=== PATIENT | male | born 1995 | race Asian ===

== ENCOUNTER 2021-06-28 13:03 | Emergency (ER) | payer OTHER ==
[~2021-06-28] VITALS: Ht 177.8 cm; Wt 84.7 kg
[2021-06-28] MEDS ORDERED: ONDA4TAB6 PO (15:54)
[2021-06-28] MEDS: ONDANSETRON 4 MG ORAL DISINTEGRATING TAB PO ONE (15:59)
[2021-06-28 16:06] VITALS: BP 132/68
== END 2021-06-28 16:12 | disposition home or self-care (01) ==
LOC: M ED 13:03
DX: S06.0X1A Concussion with loss of consciousness of 30 minutes or less, initial encounter (principal); W00.9XXA Unspecified fall due to ice and snow, initial encounter; Y92.89 Other specified places as the place of occurrence of the external cause; Y93.89 Activity, other specified; Y99.8 Other external cause status; M51.9 Unspecified thoracic, thoracolumbar and lumbosacral intervertebral disc disorder
CPT/HCPCS: 70450; 99283; Q0162

== ENCOUNTER 2022-09-16 10:58 | Emergency (ER) | payer OTHER ==
[~2022-09-16] VITALS: Ht 180.3 cm; Wt 86.4 kg
[~2022-09-16 10:58] MED LIST: ONDA4TAB6 PO
[2022-09-16] MEDS ORDERED: ONDA4TAB6 PO (15:54)
[2022-09-16 15:55] VITALS: BP 142/84
== END 2022-09-16 16:00 | disposition home or self-care (01) ==
LOC: M ED 10:58
DX: S06.0X0A Concussion without loss of consciousness, initial encounter (principal); Y04.0XXA Assault by unarmed brawl or fight, initial encounter; Z79.83 Long term (current) use of bisphosphonates

== ENCOUNTER 2023-06-23 12:48 | Emergency (ER) | payer OTHER ==
[~2023-06-23] VITALS: Ht 180.3 cm; Wt 83.4 kg
[2023-06-23] MEDS ORDERED: RIZA10TA58 (13:14)
[2023-06-23] MEDS ORDERED: AMIT25TA19 (13:14)
[2023-06-23 14:10] LABS: RSV AMPLIFICATION NEGATIVE (NEGATIVE)
[2023-06-23 16:43] VITALS: BP 133/84; TEMP 100.5; O2SAT 99
[2023-06-23] MEDS: ACETAMINOPHEN 500 MG TAB PO ONE (16:44)
== END 2023-06-23 16:55 | disposition home or self-care (01) ==
LOC: M ED 12:48
DX: J09.X9 Influenza due to identified novel influenza A virus with other manifestations (principal); Z79.899 Other long term (current) drug therapy

== ENCOUNTER → 2024-02-29 | Outpatient (REF) ==
[~2024-02-29] MED LIST changes: +AMIT25TA19; +ONDA-282 PO; -ONDA4TAB6 PO; +RIZA10TA58
== END ==
LOC: M PLAIMG 08:38
PROVIDERS: ATTEND Internal Medicine
DX: Z00.00 Encounter for general adult medical examination without abnormal findings (principal)

== ENCOUNTER → 2024-03-30 | Outpatient (CLI) | payer OTHER ==
[2024-03-30 16:25] LABS: BASO # 0.1 10^3/uL (0.0-0.2); EOS # 0.1 10^3/uL (0.0-0.5); EOS % 1.5 % (0.0-3.0); HEMATOCRIT 44.9 % (42.0-52.0); HEMOGLOBIN 14.9 g/dl (13.5-17.5); LYMPH # 1.5 10^3/uL (1.5-5.0); MEAN CORPUSCULAR HEMOGLOBIN 31.7 pg (27.0-33.0); MEAN CORPUSCULAR HGB CONC 33.2 g/dl (32.0-36.5); MEAN CORPUSCULAR VOLUME 95.5 fl (80.0-96.0); MONO # 0.7 10^3/uL (0.0-0.8); NEUTROPHILS # 3.6 10^3/uL (1.5-8.5); NEUTROPHILS % 60.2 % (36.0-66.0); PLATELET COUNT, AUTOMATED 227 10^3/uL (150-450)
[2024-03-30 16:27] LABS: ALBUMIN 3.9 G/DL (3.2-5.2); ALKALINE PHOSPHATASE 65 U/L (40-129); ALT/SGPT 16 U/L (7.0-40); AST/SGOT 15 U/L (<34); BILIRUBIN,TOTAL 0.6 MG/DL (0.3-1.2); BLOOD UREA NITROGEN 12 MG/DL (9-23); CALCIUM LEVEL 9.5 MG/DL (8.5-10.1); CARBON DIOXIDE LEVEL 31 MMOL/L (20-31); CHLORIDE LEVEL 104 MMOL/L (98-107); CREATININE FOR GFR 0.94 MG/DL (0.70-1.30); GLOMERULAR FILTRATION RATE > 60.0 (>60); GLUCOSE, FASTING 91 MG/DL (60-100); POTASSIUM SERUM 4.1 MMOL/L (3.5-5.1); SODIUM LEVEL 138 MMOL/L (136-145); TOTAL PROTEIN 7.4 G/DL (5.7-8.2)
== END ==
LOC: M LAB 15:17
PROVIDERS: ATTEND Psychiatry & Neurology Neurology
DX: R51.9 Headache, unspecified (principal)

== ENCOUNTER 2024-05-02 16:15 | Emergency (ER) | payer OTHER ==
[~2024-05-02] VITALS: Ht 180.3 cm; Wt 87.9 kg
[2024-05-02] MEDS ORDERED: EMGA120I (16:41)
[2024-05-02] MEDS ORDERED: TOPI100T9 (16:41)
[2024-05-02 19:59] VITALS: BP 131/74; TEMP 98.4; O2SAT 99
[2024-05-02] MEDS ORDERED: DICL20GE TP (21:41)
== END 2024-05-02 21:55 | disposition home or self-care (01) ==
LOC: M ED 16:15
DX: S59.902A Unspecified injury of left elbow, initial encounter (principal); Y92.410 Unspecified street and highway as the place of occurrence of the external cause; Y93.9 Activity, unspecified; Y99.9 Unspecified external cause status; W01.0XXA Fall on same level from slipping, tripping and stumbling without subsequent striking against object, initial encounter; Z79.899 Other long term (current) drug therapy

== ENCOUNTER → 2024-12-29 | Outpatient (CLI) | payer OTHER ==
[~2024-12-29] MED LIST changes: +DICL20GE TP; +EMGA120I; +TOPI-257
== END ==
LOC: M PLARAD 14:54
PROVIDERS: ATTEND Nurse Practitioner Family
DX: M54.50 Low back pain, unspecified (principal)